=== PATIENT | male | born 1960 | race Caucasian/White ===

== ENCOUNTER 2024-08-15 08:17 | Emergency (ER) | payer BC ==
[2024-08-15 08:36] VITALS: PULSE 79
[2024-08-15 08:43] VITALS: BP 173/94
== END 2024-08-15 09:25 | disposition home or self-care (01) ==
LOC: CC.ED 08:17 → SUPCPDRO 08:17 → CC.ED 09:25
DX: T18.108A Unspecified foreign body in esophagus causing other injury, initial encounter (principal); Z88.8 Allergy status to other drugs, medicaments and biological substances; Z79.82 Long term (current) use of aspirin; Z79.899 Other long term (current) drug therapy; Z86.16 Personal history of COVID-19; Z90.49 Acquired absence of other specified parts of digestive tract
CPT/HCPCS: 99283

== ENCOUNTER 2024-08-16 10:02 | Day surgery (SDC) | payer BC ==
[2024-08-16] MEDS: Lactated Ringers 1,000 ML IV SCH (10:22)
[2024-08-16] MEDS ORDERED: Sodium Chloride 0.9% 10 ML Syringe FLUSH PRN (10:30)
[2024-08-16] MEDS ORDERED: fentaNYL 50 MCG/ML SDV ONE (11:44)
[2024-08-16] MEDS ORDERED: Flumazenil 0.1 MG/ML 5 ML MDV ONE (11:44)
[2024-08-16] MEDS ORDERED: Propofol 200 MG/20 ML SDV ONE (11:44)
[2024-08-16] MEDS ORDERED: Lidocaine 2% 20 ML MDV ONE (11:44)
[2024-08-16] MEDS ORDERED: Midazolam 1 MG/ML 2 ML SDV ONE (11:44)
[2024-08-16 12:13] VITALS: BP 144/79; PULSE 54
== END 2024-08-16 11:49 | disposition home or self-care (01) ==
LOC: CC.SDS 10:02
PROVIDERS: ATTEND Family Medicine
DX: T18.128A Food in esophagus causing other injury, initial encounter (principal); W44.8XXA Other foreign body entering into or through a natural orifice, initial encounter
CPT/HCPCS: 00731; J2250; J2704; J3010; J3490; J7120